=== PATIENT | female | born 1975 | race Caucasian/White ===

== ENCOUNTER 2021-09-16 17:54 | Emergency (ER) | payer OTHER, SELFPAY ==
--- NOTE | ~2021-09-16 | XR_ITS ---
EXAMINATION: XR chest 1V Exam Date/Time: 09/16/2021 18:10 CDT CLINICAL HISTORY: left side numbness,LT CP,LT LEG PAIN Comparison: None available. RESULT: Lines, tubes, and devices: None. Lungs and pleura: Clear. Cardiomediastinal silhouette: Normal cardiomediastinal silhouette. Other: No acute osseous or upper abdominal finding. IMPRESSION: No acute cardiopulmonary process Reviewed, dictated and finalized at location K.
--- NOTE | ~2021-09-16 | CT_ITS ---
EXAMINATION: CT brain wo con DATE: 09/16/2021 18:13 INDICATION: left side numbness TECHNIQUE: Computed tomography (CT) of the head was performed without intravenous contrast. The mA wa s adjusted according to patient size. Iterative reconstruction technique was employed. The dose-lengt h product was 605.33 mGy-cm. COMPARISON: None FINDINGS: No acute intracranial hemorrhage or extra-axial fluid collection. No hydrocephalus, mass, or herniation. No acute ischemic infarct. Unremarkable dural venous sinus attenuation. No acute osseous abnormality. The aerated spaces are clear. IMPRESSION: No acute intracranial process. Reviewed, dictated and finalized at location K.
[2021-09-16 17:57] VITALS: BP 125/91; PULSE 90; RESP 18; TEMP 36.8; O2SAT 98
--- NOTE | 2021-09-16 18:01 | ECG_ITS ---
Measurements Intervals [place] Rate: 82 P: 20 ID: [id number] QRS: 9 QRSD: 94 T: -18 QT: 353 QTc: 414 Interpretive Statements SINUS RHYTHM DELAYED PRECORDIAL R/S TRANSITION LOW QRS VOLTAGE IN PRECORDIAL LEADS BORDERLINE ST-T WAVE ABNORMALITY- ANTEROLAT/INF LEADS BASELINE ARTIFACT- III BORDERLINE ECG Electronically Signed On 09-16-2021 20:03:18 CDT by Horacio Munroe D.O.
[2021-09-16 18:39] LABS: Basophils Percent Auto 0.5 % (0.2-1.2); Eosinophils Percent Auto 0.4 % (0-4.4); Hematocrit 32.2 % (37.0-47.0); Hemoglobin 9.6 g/dL (12.0-15.0); Immature Granulocyte Absolute 0.02 K/mm3 (0.00-0.031); Immature Granulocyte Percent A 0.3 % (0-0.5); Lymphocytes Absolute Auto 2.38 K/mm3 (0.9-3.2); Lymphocytes Percent Auto 29.8 % (18.3-44.2); Mean Corpuscular HGB Conc 29.8 g/dl (32-36); Mean Corpuscular Hemoglobin 23.9 pg (26-34); Mean Corpuscular Volume 80.1 fl (80-100); Monocytes Absolute Auto 0.5 K/mm3 (0.1-0.6); Monocytes Percent Auto 6.8 % (2.6-8.5); Neutrophils Percent Auto 62.2 % (45.5-73.1); Platelet Count Result 306 k/mm3 (150-375); Red Blood Count 4.02 M/mm3 (4.2-5.4); Red Cell Distribution Width 16.2 % (11.5-14.5)
[2021-09-16 18:48] LABS: Alanine Aminotransferase 29 U/L (6-35); Albumin Level 4.5 g/dL (3.5-5.1); Alkaline Phosphatase 99 U/L (38-126); Anion Gap 9 mmol/L (8-16); Aspartate Amino Transferase 34 U/L (14-36); Bilirubin,Total 0.2 mg/dL (0.2-1.3); Blood Urea Nitrogen 12 mg/dL (7-17); Carbon Dioxide 28 mmol/L (22-30); Chloride 102 mmol/L (98-107); Estimated CRCL calculation 90 ml/min; Estimated Glomerular Filt Rate > 60; Glucose 108 mg/dL (65-110); Potassium 3.6 mmol/L (3.4-5.0); Sodium 139 mmol/L (137-145)
[2021-09-16 18:55] LABS: INR 1.1; Prothrombin Time 13.8 Seconds (11.1-14.7)
[2021-09-16 18:56] LABS: Partial Thromboplastin Time 31.1 SECONDS (22.3-36.8)
[2021-09-16 19:00] LABS: Troponin I < 0.012 ng/mL (0.000-0.034)
--- NOTE | 2021-09-16 20:30 | ED.NEUROSD ---
HPI - Neuro Symptoms/Deficit General Chief Complaint: Neuro Symptoms/Deficit Stated Complaint: left sided weakness Time Seen by Provider: 09/16/21 20:14 Source: patient History of Present Illness HPI Narrative: Patient presents with intermittent numbness on the left side of her body. Reports has had symptoms like this for years however today's episode seemed more severe and was involving her lower extremity which is unusual for her. She also reports her symptoms usually associated with headache which she does not have today. She does at work when the event happened the event was brief and has resolved reports she is feeling much improved now. She also reports mild chest pain which is achy, constant, no radiation, no clear aggravating or alleviating factors. She is previous seen neurology at [facility] for her numbness was instructed to take Topamax but is not done so she has not been evaluated by them for over 2 years. Review of Systems Review of Systems: CONSTITUTIONAL: Denies fever, chills, or sweats. EYES: Denies visual changes, redness, or discharge. ENT: Denies rhinorrhea, congestion, sore throat, or otalgia. CARDIOVASCULAR: Denies palpitations, or edema. RESPIRATORY: Denies cough or dyspnea. GASTROINTESTINAL: Denies abdominal pain, nausea, vomiting, or diarrhea. GENITOURINARY: Denies dysuria or hematuria. SKIN: Denies rash or itching. MUSCULOSKELETAL: Denies back pain, joint pain, or myalgia. NEUROLOGIC: Denies headache, dizziness, or weakness. PSYCHIATRIC: Denies anxiety or depression. All systems reviewed & are unremarkable except as noted in HPI and below PMFSH Social History Social History (Updated 09/16/21 @ 20:34 by Honorio Dc MD) Substance use type: does not use Exam Narrative: GENERAL: Well-appearing, well-nourished, and in no acute distress. HEAD: Normocephalic, atraumatic. EYES: PERRLA and EOMI. ENT: Nares clear, no rhinorrhea or epistaxis. Mucous membranes moist. NECK: Supple. No masses. No JVD CHEST: Clear to auscultation. No respiratory distress. No wheezes rales or rhonchi HEART: Regular rate and rhythm. No murmur heard. Normal peripheral pulses. ABDOMEN: Soft, nontender, nondistended, normal active bowel sounds. EXTREMITIES: Normal range of motion. No edema. SKIN: Warm, dry, no rash. NEURO: Cranial nerves II through XII are intact patient has 5 out of 5 strength in all extremities sensation intact light touch in all extremities alert and oriented x3. PSYCH: Normal mood and affect. Course Reevaluation(s) Reevaluation #1: Patient resting company results and plan reviewed with patient. Patient is comfortable outpatient plan. Date: 09/16/21 Time: 20:34 Vital Signs Vital signs: Vital Signs Temperature 36.8 C 09/16/21 17:57 Pulse Rate 90 09/16/21 17:57 Respiratory Rate 18 09/16/21 17:57 Blood Pressure 125/91 H 09/16/21 17:57 Pulse Oximetry 98 09/16/21 17:57 Temperature 36.8 C 09/16/21 17:57 Pulse Rate 85 09/16/21 20:40 Respiratory Rate 18 09/16/21 20:40 Blood Pressure 125/91 H 09/16/21 17:57 Pulse Oximetry 100 09/16/21 20:40 MDM - Neuro Symptoms/Deficit MDM Narrative Medical decision making narrative: H&P as above, vss, pt looks clinically well, exam without focal neurological deficits, labs clinically unremarkable, img without acute process, additional labs/img considered, symptomatic relief available as needed, on reevaluation pt continues to looks clinically well. Symptoms remain of unclear etiology however given the intermittent nature over several years low concern for CVA or TIA., dns intracranial hemorrhage, fracture, cord compromise. May represent complex migraine with partial seizures. plan to tx/monitor as op w/ pcm and neurology f/u findings/plan discussed with pt, pt agree/comfortable with plan, return precautions given Lab Data Result diagrams: 09/16/21 18:33 09/16/21 18:33 Labs: Lab Results 09/16/21
[2021-09-16 20:40] VITALS: PULSE 85; RESP 18; O2SAT 100
== END 2021-09-16 21:20 | disposition home or self-care (01) ==
PROVIDERS: Emergency Provider Emergency Medicine
DX: R20.0 Anesthesia of skin (principal); R94.31 Abnormal electrocardiogram [ECG] [EKG]
CPT/HCPCS: 36415; 70450; 71045; 80053; 84484; 85025; 85610; 85730; 93005; 99284

== ENCOUNTER 2021-10-13 16:01 | Outpatient (CLI) | payer OTHER, SELFPAY ==
--- NOTE | ~2021-10-13 | US_ITS ---
EXAMINATION: US carotid duplex BI DATE: 10/13/2021 16:55 INDICATION: Transient cerebral ischemic attack TECHNIQUE: Grayscale, color Doppler, and pulsed Doppler images of the cervical carotid arteries were obtained. The degree of vessel stenosis is placed in one of the following categories: normal, <50%, 5 0-69%, >=70% but less than near-occlusion, near-occlusion, or total occlusion. Note that percent sten osis relative to normal distal artery lumen diameter is indirectly measured from velocity measurement s as described by Ritchie, et al. Radiology 2003; 229:340-346. Notes: Normal: Peak systolic velocity <125 centimeters/sec and no plaque <50%. Peak systolic velocity <125 ( EDV <40; ICA/CCA PSV ratio <2.0; used these factors only a tandem lesions or low cardiac output or co ntralateral disease) 50-69 %: PSV 125-230 (EDV 40-100; ratio 2-4) >= 70% but less than near occlusion: PSV greater than 230 (EDV > 100; ratio> 4.0) Near Occlusion: PSV that is variable; markedly narrowed lumen Occlusion: Absent flow on color/spectral Doppler and no lumen on plunkett scale. COMPARISON: None. FINDINGS: RIGHT: The right common carotid artery (CCA) peak systolic velocity (PSV) is 87 cm/s. The right internal car otid artery (ICA) PSV is 107 cm/s. The right ICA end-diastolic velocity (EDV) is 37 cm/s. The right I CA/CCA PSV ratio is 1.2. The external carotid artery (ECA) PSV is 74 cm/s. There is antegrade flow in the right vertebral artery. LEFT: The left CCA PSV is 63 cm/s. The left ICA PSV is 97 cm/s. The left ICA EDV is 39 cm/s. The left ICA/C CA PSV ratio is 1.5. The ECA PSV is 104 cm/s. There is antegrade flow in the left vertebral artery. IMPRESSION: 1. Less than 50% stenosis in the right internal carotid artery by sonographic criteria. 2. Less than 50% stenosis in the left internal carotid artery by sonographic criteria. Reviewed, dictated and finalized at location B. IMPRESSION: 1. Less than 50% stenosis in the right internal carotid artery by sonographic c michelle. 2. Less than 50% stenosis in the left internal carotid artery by sonographic cr katiana.
== END 2021-10-13 16:02 | disposition home or self-care (01) ==
PROVIDERS: PCP Family Medicine; Visit Provider Psychiatry & Neurology Neurology
DX: G45.9 Transient cerebral ischemic attack, unspecified (principal)
CPT/HCPCS: 93880

== ENCOUNTER 2021-11-20 09:48 | Outpatient (CLI) | payer OTHER, SELFPAY ==
--- NOTE | 2021-11-20 11:00 | NEURO_ITS ---
Impression: # Complains of numbness of upper and lower extremities. # Only subtle evolving Carpal Tunnel Syndrome. # No ulnar neuropathy. # Normal needle/EMG exam. # Clinical correlation recommended. Nerve Conduction Studies Anti Sensory Summary Table Stim Site NR Peak (ms) P-T Amp (?V) Site1 Site2 Delta-P (ms) Dist (cm) Luis Manuel (m/s) Left Median Anti Sensory (2-3nd Digit) Wrist 3.0 73.2 Wrist 2-3nd Digit 3.0 14.0 47 Wrist 2.9 87.6 Wrist 2-3nd Digit 3.0 14.0 47 Right Median Anti Sensory (2-3nd Digit) Wrist 3.0 66.9 Wrist 2-3nd Digit 3.0 14.0 47 Wrist 2.8 68.4 Wrist 2-3nd Digit 3.0 14.0 47 Left Radial Anti Sensory (Base 1st Digit) Wrist 3.0 12.3 Wrist Base 1st Digit 3.0 0.0 Right Radial Anti Sensory (Base 1st Digit) Wrist 2.9 18.1 Wrist Base 1st Digit 2.9 0.0 Left Sup Fibular Anti Sensory (Ant Lat Mall) 14 cm 3.2 4.4 14 cm Ant Lat Mall 3.2 16.0 50 Right Sup Fibular Anti Sensory (Ant Lat Mall) 14 cm 3.6 4.7 14 cm Ant Lat Mall 3.6 16.0 44 Left Sural Anti Sensory (Lat Mall) Calf 3.9 20.9 Calf Lat Mall 3.9 16.0 41 Right Sural Anti Sensory (Lat Mall) Calf 3.8 8.2 Calf Lat Mall 3.8 16.0 42 Left Ulnar Anti Sensory (5th Digit) Wrist 2.7 58.5 Wrist 5th Digit 2.7 14.0 52 Right Ulnar Anti Sensory (5th Digit) Wrist 2.5 75.2 Wrist 5th Digit 2.5 14.0 56 Motor Summary Table Stim Site NR Onset (ms) O-P Amp (mV) Site1 Site2 Delta-0 (ms) Dist (cm) Luis Manuel (m/s) Left Median Motor (Abd Poll Brev) Wrist 3.6 3.1 Elbow Wrist 4.6 26.0 57 Elbow 8.2 1.9 Right Median Motor (Abd Poll Brev) Wrist 3.8 1.9 Elbow Wrist 4.7 26.0 55 Elbow 8.5 1.2 Left Peroneal Motor (Vastus Med) Ankle 4.4 3.3 Popit Ankle 6.6 36.0 55 Popit 11.0 2.8 Right Peroneal Motor (Vastus Med) Ankle 4.1 0.9 Popit Ankle 6.6 33.0 50 Popit 10.7 4.0 Left Tibial Motor (Abd Nieves Brev) Ankle 4.2 5.8 Knee Ankle 6.7 35.0 52 Knee 10.9 5.4 Right Tibial Motor (Abd Nieves Brev) Ankle 4.4 5.0 Knee Ankle 7.3 37.0 51 Knee 11.7 5.4 Left Ulnar Motor (Abd Dig Minimi) Wrist 2.5 6.5 A Elbow Wrist 4.8 27.0 56 A Elbow 7.3 5.5 Right Ulnar Motor (Abd Dig Minimi) Wrist 2.7 8.3 A Elbow Wrist 4.7 27.0 57 A Elbow 7.4 7.4 F Wave Studies NR F-Lat (ms) L-R F-Lat (ms) Left Median (Mrkrs) (Abd Poll Brev) 26.49 0.53 Right Median (Mrkrs) (Abd Poll Brev) 27.02 0.53 Left Peroneal (Mrkrs) (EDB) 54.85 1.05 Right Peroneal (Mrkrs) (EDB) 55.91 1.05 Left Tibial (Mrkrs) (Abd Hallucis) 54.83 0.12 Right Tibial (Mrkrs) (Abd Hallucis) 54.71 0.12 Left Ulnar (Mrkrs) (Abd Dig Min) 26.56 0.23 Right Ulnar (Mrkrs) (Abd Dig Min) 26.33 0.23 EMG Side Muscle Nerve Root Ins Act Fibs Amp Dur Recrt Comment Right 1stDorInt Ulnar C8-T1 Nml Nml Nml Nml Nml Right Ext Indicis Radial (Post Int) C7-8 Nml Nml Nml Nml Nml Right Ext Digitorum Radial (Post Int) C7-8 Nml Nml Nml Nml Nml Right BrachioRad Radial C5-6 Nml Nml Nml Nml Nml Right PronatorTeres Median C6-7 Nml Nml Nml Nml Nml Right Abd Poll Brev Median C8-T1 Nml Nml Nml Nml Nml Right AntTibialis Dp Br Fibular L4-5 Nml Nml Nml Nml Nml Right Gastroc Tibial S1-2
== END 2021-11-20 09:49 | disposition home or self-care (01) ==
LOC: ANHNEURO 09:48
PROVIDERS: PCP Family Medicine; Visit Provider Psychiatry & Neurology Neurology
DX: G62.9 Polyneuropathy, unspecified (principal)
CPT/HCPCS: 95886; 95911; 95913